=== PATIENT | female | born 1990 | race African-American/Black ===

== ENCOUNTER 2024-12-23 21:07 | Emergency (ER) | payer OTHER ==
[2024-12-23] MEDS ORDERED: ZIPRASIDONE MESYLA 20 MG/VIAL IM ONE (21:45)
[2024-12-23] MEDS ORDERED: LORazepam 2 MG/ML VIAL ONE (21:45)
[2024-12-23] MEDS ORDERED: WATER FOR INJ,STERILE 10 ML ONE (21:45)
[2024-12-23 22:20] LABS: Absolute Lymphocytes (CBC) 1.2 K/uL (0.7-4.9); Absolute Monocytes 0.5 K/uL (0.1-1.3); Absolute Neutrophil 7.9 K/uL (1.8-8.0); Basophils % 0.2 % (0-1.3); Eosinophils % 0.3 % (0-4.4); Hemoglobin 14.4 g/dL (12.0-15.0); Lymphocytes % 12.3 % (15.3-44.8); MCH 30.2 pg (27.0-35.0); MCHC 34.3 g/dL (32.0-36.0); MCV 88.1 fL (80-100); Neutrophils % 82.2 % (41.7-73.7); Nucleated Red Blood Cells % 0.1 % (0-0); Platelets 271 thou/uL (152-406); RBC Red Blood Cell Count 4.77 M/uL (3.86-4.86); Red Cell Distribution Width 13.7 % (12.1-15.2)
[2024-12-23 22:31] LABS: PT Prothrombin Time 13.8 SECONDS (10-13.0); PTT, Activated Partial Thromb 28.3 SECONDS (27.2-37.4); Protime INR 1.22
[2024-12-23 23:29] LABS: ALT/SGPT 27 U/L (13-56); AST/SGOT 17 U/L (15-37); Albumin 3.7 g/dL (3.4-5.0); Albumin/Globulin Ratio 0.7 (1.1-1.8); Alkaline Phosphatase 89 U/L (45-117); Anion Gap 17.2 mEq/L (5.0-15.0); BUN Blood Urea Nitrogen 8 mg/dL (7-18); Bicarbonate 17 mEq/L (21-32); Bilirubin Total 0.7 mg/dL (0.2-1.0); Globulin 5.2 g/dL (2.3-3.5); Glomerular Filtration Rate 100 ml/min (=/>90); Glucose Level 93 mg/dL (74-106); Potassium 3.2 mEq/L (3.5-5.1); Protein, Total 8.9 g/dL (6.4-8.2); Sodium Level 140 mEq/L (136-145)
[2024-12-23 23:40] LABS: Bilirubin Direct < 0.2 mg/dL (0-0.2); Bilirubin Indirect, Calculated 0.5 mg/dL (0.2-0.8)
[2024-12-24 01:03] LABS: Specific Gravity 1.038 (1.005-1.030)
[2024-12-24 01:08] LABS: Barbiturates NEGATIVE (NEGATIVE); Benzodiazepines NEGATIVE (NEGATIVE); Cocaine NEGATIVE (NEGATIVE); METHAMPHETAM NEGATIVE (NEGATIVE); Methadone NEGATIVE (NEGATIVE); Opiates NEGATIVE (NEGATIVE); Phencyclidine NEGATIVE (NEGATIVE); THC Cannibis NEGATIVE (NEGATIVE)
--- NOTE | 2024-12-24 03:52 | EDPHYS ---
Physician Documentation [facility] Name: Nguyen Rangel Age: 34 yrs Sex: Female : 1990 Arrival Date: 12/23/2024 Time: 21:07 Bed 17 Private MD: ED Physician Joshua Shi HPI: 12/23 21:12 This 34 yrs old Black Female presents to ER via Unassigned with complaints of psychosis sp4 . 12/24 03:43 34-year-old female with history of schizophrenia presents with medication sp4 noncompliance. Patient and her family currently resides in the [facility]. . 03:43 Patient presents to the emergency room with police written TURNER. . sp4 Historical: - Allergies: 00:14 No Known Allergies; km10 - PMHx: 00:14 Schizophrenia; Bipolar disorder; Hypertensive disorder; km10 - Immunization history:: unable to obtain, pt disoriented. - Infectious Disease History:: Denies. - Social history:: Smoking status: unknown. - Family history:: not pertinent. 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 Dressed in underwear and small sports shirt only. Refuses hospital gown. Refused medical bracelet, refused any medical treatment. Appears distracted and dejected Head/Face: Normocephalic, atraumatic. Eyes: Pupils equal round and reactive to light, extra-ocular motions intact. Lids and lashes normal. Conjunctiva and sclera are not injected. Cornea within normal limits. Periorbital areas with no swelling, redness, or edema. ENT: Nares patent. No nasal discharge, no septal abnormalities noted. Neck: Trachea midline, no thyromegaly or masses palpated, and no cervical lymphadenopathy. Supple, full range of motion without nuchal rigidity, or vertebral point tenderness. Chest/axilla: Normal chest wall appearance and motion. Nontender with no deformity. No lesions are appreciated. Cardiovascular: Regular rate and rhythm with a normal S1 and S2. No gallops, murmurs, or rubs. Normal PMI, no JVD. No pulse deficits. Respiratory: Lungs have equal breath sounds bilaterally, clear to auscultation and percussion. No rales, rhonchi or wheezes noted. No increased work of breathing, no retractions or nasal flaring. Abdomen/GI: Soft, with normal bowel sounds. No distension or tympany. No guarding or rebound. No evidence of tenderness throughout. Back: No spinal tenderness. No costovertebral tenderness. Skin: Warm, dry with normal turgor. Normal color with no rashes, no lesions, and no evidence of cellulitis. MS/ Extremity: Pulses equal, no cyanosis. Neurovascular intact. 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 Well-healed stumps Neuro: Awake and alert, refuses to comply with exam and treatment. Uncooperative. Grossly no neurologic deficits that are acute. Psych: Awake, alert, with orientation to person, patient is uncooperative and police at the provide help to hold patient down. 03:48 ECG was reviewed by the Attending Physician. EKG at 0058 normal sinus rhythm rate 70 sp4 left axis deviation. Right bundle branch block Vital Signs: 12/23 22:19 BP 136 / 83; Pulse 109; Resp 18; Temp 98.6(A); Pulse Ox 100% on R/A; km10 12/24 01:00 Pulse 76; Resp 16; Pulse Ox 98% on R/A; km10 07:24 BP 148 / 87; Pulse 92; Resp 18 S; Pulse Ox 94% on R/A; kc6 08:22 BP 154 / 91; Pulse 96; Resp 17 S; Pulse Ox 96% on R/A; Pain 0/10; kc6 09:59 BP 145 / 86; Pulse 99; Resp 18 S; Pulse Ox 96% on R/A; kc6 10:42 BP 148 / 89; Pulse 98; Resp 18 S; Pulse Ox 95% on R/A; kc6 17:07 BP 130 / 88; Pulse 100; Resp 18 S; Temp 99(O); Pulse Ox 100% on R/A; kc6 08:22 Pain Scale: Adult kc6 [place] Coma Score: 03:43 Eye Response: spontaneous(4). Motor Response: localizes pain(5). Verbal Response: sp4 confused(4). Total: 13. MDM: 12/23 21:12 Medical Screening Exam initiated sp4 12/24 03:47 Differential diagnosis: drug withdrawal. acute psychotic break, depression, psychosis 4 secondary to non-compliance. Data reviewed: vital signs, nurses notes, lab test result(s), EKG. Consideration of Admission/Observation Escalation of care including admission/observation considered. ED course: EKG at 0058. 03:51 Management of patient was discussed with the following: Cloud Solutions Architect: Attending [facility] psychiatrist. 04:52 ED course: X-ray was ordered to rule out vaginal foreign body. [facility] 12/23 21:12 Order name: Acetaminophen; Complete Time: 23:50 [facility] 12/23 21:12 Order name: Basic Metabolic Panel; Complete Time: 23:50 [facility] 12/23 21:12 Order name: CBC with Diff; Complete Time: :50 [facility] 12/23 21:12 Order name: ETOH Level; Complete Time: :50 [facility] 12/23 21:12 Order name: Hepatic Function; Complete Time: :50 [facility] 12/23 21:12 Order name: PT-INR; Complete Time: :50 [facility] 12/23 21:12 Order name: Test, Urine; Complete Time: 03:50 [facility] 12/23 21:12 Order name: Ptt, Activated; Complete Time: 23:50 [facility] 12/23 21:12 Order name: Salicylate; Complete Time: 23:50 [facility] 12/23 21:12 Order name: Urine Drug Screen; Complete Time: 03:50 [facility] 12/24 03:50 Order name: BMP [facility] 12/24 04:28 Order name: XRAY Pelvis [facility] 12/23 21:12 Order name: EKG - Nurse/Tech; Complete Time: 01: [facility] 12/23 21:12 Order name: IV Saline Lock; Complete Time: 22:08 [facility] 12/23 21:12 Order name: Labs collected and sent; Complete Time: 22:03 [facility] 12/23 21:12 Order name: Suicide Precautions; Complete Time: 02:46 [facility] 12/23 21:12 Order name: Suicide Screening ([place]); Complete Time: 02:46 [facility] 12/23 21:12 Order name: Cath; Complete Time: 01: [facility] EC:58 Rate is 70 beats/min. Rhythm is regular, Sinus Rhythm. Left axis deviation noted. [place] sp4 interval is normal. QRS interval is prolonged. QT interval is normal. No Q waves. No ST changes noted. Clinical impression: No evidence of ischemia. Interpreted by me. Reviewed by me. Administered Medications: 12/23 22:08 Drug: Geodon IM 40 mg IM once Route: IM; Site: left deltoid; km10 22:34 Follow up: Response: No adverse reaction km10 22:08 Drug: LORazepam IM 2 mg IM once Route: IM; Site: right deltoid; km10 22:34 Follow up: Response: No adverse reaction km10 22:33 Not Given (Patient Refused): Banana Bag - (ns 0.9% 1000 ml, folic acid ivpb 1 mg, km10 [id number] mg, multivitamin1 amp) IV at calculated rate once 12/24 06:22 Drug: Promethazine IM 50 mg IM once Route: IM; Site: left deltoid; rg5 07:34 Follow up: Response: No adverse reaction kc6 Disposition: 06:18 Chart complete. sp4 Disposition Summary: 12/24/24 03:52 Transfer Ordered Notes: Transfer Location: [facility] sp4 Reason: Higher level of care sp4 Condition: Stable sp4 Problem: new sp4 Symptoms: have improved sp4 Accepting Physician: Attending psychiatrist(12/24/24 18:59) kc6 Diagnosis - Catatonic disorder due to known physiological condition sp4 - Schizophrenia, noncompliance with psychiatric medications, uncooperative behavior sp4 - Agitation requiring sedation sp4 Forms: - Medication Reconciliation Form sp4 - SBAR form sp4 Signatures: Dispatcher [employer] EDSera Bruner RN RN kc6 Joshua Shi MD MD sp4 Fernando Arevalo RN RN rg5 Lizbeth Thomas RN RN km10 Corrections: (The following items were deleted from the chart) 12/23 21:12 21:12 ACETAMINOPHEN+C.LAB.BRZ ordered. EDMS EDMS 21:12 21:12 BASIC METABOLIC PANEL+C.LAB.BRZ ordered. EDMS EDMS 21:12 21:12 CBC+H.LAB.BRZ ordered. EDMS EDMS 21:12 21:12 ETHANOL+C.LAB.BRZ ordered. EDMS EDMS 21:12 21:12 HEPATIC FUNCTION+C.LAB.BRZ ordered. EDMS EDMS 21:12 21:12 PROTIME (+INR)+COAG.LAB.BRZ ordered. EDMS EDMS : 21:12 PTT, ACTIVATED+COAG.LAB.BRZ ordered. EDMS EDMS : 21:12 SALICYLATE+C.LAB.BRZ ordered. EDMS EDMS : 21:12 URINE DRUG SCREEN+UC.LAB.BRZ ordered. EDMS EDMS 22:35 21:12 Test, Urine+UC.LAB.BRZ ordered. EDMS EDMS 12/24 00:15 12/23 22:10 Allergies: Unable to obtain; km10 km10 12/24 18:59 03:52 Attending psychiatrist sp4 kc6
--- NOTE | 2024-12-24 03:52 | ER ---
Nurse's Notes [facility] Name: Nguyen Rangel Age: 34 yrs Sex: Female : 1990 Arrival Date: 12/23/2024 Time: 21:07 Bed 17 Private MD: Diagnosis: Catatonic disorder due to known physiological condition;Schizophrenia, noncompliance with psychiatric medications, uncooperative behavior;Agitation requiring sedation Presentation: 12/23 21:07 Chief complaint: [place] PD- pt is not responding to question, her mom called rg5 initially the EMS but she was not cooperative \\T\\ refusing to go with them. 21:07 Coronavirus screen: At this time, unable to obtain information related to travel rg5 outside the [place] Ebola Screen: No symptoms or risks identified at this time. Initial Sepsis Screen: Does the patient meet any 2 criteria? No. Patient's initial sepsis screen is negative. Does the patient have a suspected source of infection? No. Patient's initial sepsis screen is negative. Risk Assessment: Do you want to hurt yourself or someone else? Patient reports no desire to harm self or others. Onset of symptoms was December 23, 2024. 21:07 Method Of Arrival: Law Enforcement: [place] PD rg5 21:07 Acuity: REINIER 3 rg5 Triage Assessment: 21:07 General: Appears in no apparent distress. Behavior is quiet, uncooperative. Pain: rg5 Denies pain. EENT: No deficits noted. Neuro: Level of Consciousness is awake, alert. Cardiovascular: Patient's skin is warm and dry. Respiratory: Airway is patent Trachea midline Respiratory effort is even, unlabored, Respiratory pattern is regular, symmetrical. GI: Abdomen is round obese. Historical: - Allergies: 12/24 00:14 No Known Allergies; km10 - PMHx: 00:14 Schizophrenia; Bipolar disorder; Hypertensive disorder; km10 - Immunization history:: unable to obtain, pt disoriented. - Infectious Disease History:: Denies. - Social history:: Smoking status: unknown. - Family history:: not pertinent. Screenin/24 22:08 Abuse screen: unable to obtain, pt disoriented. Nutritional screening: No deficits km10 noted. Tuberculosis screening: No symptoms or risk factors identified. 12/24 07:00 [facility] ED Fall Risk Assessment (Adult) History of falling in the last 3 months, kc6 including since admission No falls in past 3 months (0 pts) Confusion or Disorientation No (0 pts) Intoxicated or Sedated No (0 pts) Impaired Gait Yes (1 pt) Mobility Assist Device Used Yes (1 pt) Altered Elimination No (0 pt) Score/Fall Risk Level 0 - 2 = Low Risk Oriented to surroundings. Assessment: 12/23 22:09 General: Appears in no apparent distress. Behavior is flat, inappropriate for age, km10 uncooperative. Neuro: Level of Consciousness is awake, Oriented to person. Respiratory: Respiratory effort is even, unlabored. 23:04 Reassessment: Patient appears in no apparent distress at this time. pt refuses VS. 10 23:05 Respiratory: Respiratory effort is even, unlabored. 10 12/24 00:15 Musculoskeletal: Amputation of right leg BKA, left leg AKA. km10 01:00 Reassessment: Patient appears in no apparent distress at this time. Patient states km10 symptoms have improved. pt is sleeping at this time, able to obtain VS and place her on cardiac monitor technician. . 01:00 Respiratory: Respiratory effort is even, unlabored. 10 02:43 Reassessment: [phone] (mom). rg5 07:00 Reassessment: pt with eyes closed, respirations even and unlabored. easy to arouse. kc6 08:21 Reassessment: Patient appears in no apparent distress at this time. Patient and/or kc6 family updated on plan of care and expected duration. Pain level reassessed. 09:13 Reassessment: spoke with patients mother regarding patients condition and POC. mother kc6 verbalizes understanding. 09:58 Reassessment: Patient appears in no apparent distress at this time. Patient and/or kc6 family updated on plan of care and expected duration. Pain level reassessed. 10:40 Reassessment: nurse to nurse report given to [facility]. patient declined at [facility] this time due to "medical acuity". 12:18 Reassessment: pt is awake, oriented x4 with intermittent drowsiness. pt denies SI or HI kc6 at this time. 13:50 Reassessment: Patient appears in no apparent distress at this time. No changes from [facility] previously documented assessment. Patient and/or family updated on plan of care and expected duration. Pain level reassessed. Patient is alert, oriented x 3, equal unlabored respirations, skin warm/dry/pink. 14:50 Reassessment: Patient appears in no apparent distress at this time. No changes from kc6 previously documented assessment. Patient and/or family updated on plan of care and expected duration. Pain level reassessed. Patient is alert, oriented x 3, equal unlabored respirations, skin warm/dry/pink. 15:30 Reassessment: spoke with patients mother regarding patients condition and status of kc6 transfer. mother verbalizes understanding. 15:36 Reassessment: spoke with NIKI Torres from [facility] [place]. patient declined at this time kc6 due to, "not enough clinical data." NIKI Torres states, "if she is not having any auditory or visual hallucinations or has SI/HI then this is something that can be managed outpatient and unfortunately our doctor doesn't have enough clinical data.". 15:41 Reassessment: pt with eyes closed, respirations even and unlabored, easy to arouse. kc6 16:29 Reassessment: spoke with NIKI Her at [facility]. requesting PMH regarding BKA \\T\\ kc6 AKA as well as home meds. attempted to call mom x2 to obtain PMH. no answer at this time. 16:33 Reassessment: spoke with NIKI Ochoa at [facility]. states she will speak with her kc6 eligibility manager and call us back. 16:47 Reassessment: spoke with NIKI Ochoa from [facility]. she states patient does not kc6 meet inpatient criteria and requesting she f/u outpatient. 16:50 Reassessment: Patient appears in no apparent distress at this time. No changes from kc6 previously documented assessment. Patient and/or family updated on plan of care and expected duration. Pain level reassessed. Patient is alert, oriented x 3, equal unlabored respirations, skin warm/dry/pink. 17:00 Reassessment: pt denies SI or HI or any auditory or visual hallucinations. pt refusing kc6 meal tray provided at this time. pt offered something else but still refuses. 17:08 Reassessment: spoke with NIKI Her at [facility] regarding PMH. states she will kc6 put in for doc to doc and acceptance and call back in 10min. 17:15 Reassessment: pt awake in bed singing praise and adventism music and praying. [facility] 17:49 Reassessment: Patient appears in no apparent distress at this time. No changes from [facility] previously documented assessment. Patient and/or family updated on plan of care and expected duration. Pain level reassessed. Patient is alert, oriented x 3, equal unlabored respirations, skin warm/dry/pink. 18:57 Reassessment: Patient appears in no apparent distress at this time. No changes from [facility] previously documented assessment. Patient and/or family updated on plan of care and expected duration. Pain level reassessed. Patient is alert, oriented x 3, equal unlabored respirations, skin warm/dry/pink. 19:00 Reassessment: mother informed that patient is being transferred to [place] [address] and provided contact information. mother verbalizes understanding. Psych: 12/23 22:11 [place] Suicide Severity Screening: unable to obtain, pt uncooperative with assesment km10 questions. Subjective: Delusions are denominational. Objective: Patient is uncooperative, defensive, Speech is rambling, Affect is flat, inappropriate. Pt denies substance abuse. Commitment: Patient will be an involuntary commitment. 12/24 07:00 [place] Suicide Severity Screening: In the past month, have you wished you were kc or wished you could go to sleep and not wake up? Patient responds "No." "In the past month, have you actually had any thoughts of killing yourself?" Patient responds "no." "In your lifetime, have you ever done anything, started to do anything, or prepared to do anything to end your life?" Patient responds "no.". Interventions: Patient placed in hospital gown. Searched person for dangerous items. Urine collected and sent for urine drug test. Safety Checks: Personal items have not been removed. Door is closed to patient's room. No visitors are present at this time. Vital Signs: 12/23 22:19 BP 136 / 83; Pulse 109; Resp 18; Temp 98.6(A); Pulse Ox 100% on R/A; km10 12/24 01:00 Pulse 76; Resp 16; Pulse Ox 98% on R/A; km10 07:24 BP 148 / 87; Pulse 92; Resp 18 S; Pulse Ox 94% on R/A; kc6 08:22 BP 154 / 91; Pulse 96; Resp 17 S; Pulse Ox 96% on R/A; Pain 0/10; kc6 09:59 BP 145 / 86; Pulse 99; Resp 18 S; Pulse Ox 96% on R/A; kc6 10:42 BP 148 / 89; Pulse 98; Resp 18 S; Pulse Ox 95% on R/A; kc6 17:07 BP 130 / 88; Pulse 100; Resp 18 S; Temp 99(O); Pulse Ox 100% on R/A; kc6 08:22 Pain Scale: Adult kc6 [place] Coma Score: 03:43 Eye Response: spontaneous(4). Motor Response: localizes pain(5). Verbal Response: sp4 confused(4). Total: 13. ED Course: 12/23 21:11 Patient arrived in ED. sb4 21:11 Joshua Shi MD is Attending Physician. sp4 21:52 Triage completed. rg5 22:01 Inserted 23 G right AC straight stick. vk 22:03 Initial lab(s) drawn, by me, sent to lab. vk 22:03 Acetaminophen Sent. vk 22:03 Basic Metabolic Panel Sent. vk 22:03 CBC with Diff Sent. vk 22:03 ETOH Level Sent. vk 22:03 Hepatic Function Sent. vk 22:03 PT-INR Sent. vk 22:03 Ptt, Activated Sent. vk 22:03 Salicylate Sent. vk 22:07 Lizbeth Thomas, RN is Primary Nurse. km10 22:07 Arm band placed on right wrist. km10 22:30 Patient has correct armband on for positive identification. Call light in reach. Side km10 rails up X2. 12/24 01:00 monitoring tech on. Pulse ox on. NIBP on. km10 01:00 Noise minimized. Lights dimmed. Warm blanket given. Pillow given. km10 02:37 Report given to Temo PRINCE. km10 02:41 Lizbeth Thomas, RN is Primary Nurse. km10 04:49 documents have been faxed to the following facilities for transfer: [facility], [facility], [facility]. 04:58 XRAY Pelvis In Process Unspecified. EDMS 06:33 BMP Sent. oe 07:00 Patient maintains SpO2 saturation greater than 95% on room air. kc6 07:00 Report received from NIKI Malik. kc6 07:00 Patient has correct armband on for positive identification. Bed in low position. Call kc6 light in reach. Side rails up X2. Pulse ox on. NIBP on. Door closed. Noise minimized. Lights dimmed. Moved to private room. Warm blanket given. Pillow given. Verbal reassurance given. 07:53 Diet: Patient given a regular meal tray. kc6 11:11 1050 [facility] denied transfer. sp 13:50 Diet: Patient given a regular meal tray. Patient given water. kc6 16:[address] Tamara Langley accepted pt to [facility] 1645 Admin approval Shari cuadra called [facility] for transfer talked to [place]. 16:49 Assisted to bathroom. Repositioned patient. Linen changed. kc6 18:57 No provider procedures requiring assistance completed. Patient did not have IV access kc6 during this emergency room visit. Administered Medications: 12/23 22:08 Drug: Geodon IM 40 mg IM once Route: IM; Site: left deltoid; km10 22:34 Follow up: Response: No adverse reaction km10 22:08 Drug: LORazepam IM 2 mg IM once Route: IM; Site: right deltoid; km10 22:34 Follow up: Response: No adverse reaction 10 22:33 Not Given (Patient Refused): Banana Bag - (ns 0.9% 1000 ml, folic acid ivpb 1 mg, km10 mg, multivitamin1 amp) IV at calculated rate once 12/24 06:22 Drug: Promethazine IM 50 mg IM once Route: IM; Site: left deltoid; rg5 07:34 Follow up: Response: No adverse reaction kc6 Medication: 18:59 VIS not applicable for this client. kc6 Outcome: 03:52 ER care complete, transfer ordered by sp4 18:57 Transferred by [facility]. Transfer form completed. kc6 18:57 Condition: good 18:57 Instructed on the need for transfer, 18:59 Patient left the ED. kc6 Signatures: Dispatcher [employer] EDMS Patricia Ortega Orlando oe Campbell, Kaitlyn RN RN kc6 Rach Julio PA-C PAJoshua Streeter MD MD sp4 Lucy Sellers Fernando Arevalo RN RN rg5 Lizbeth Thomas RN RN km10 Corrections: (The following items were deleted from the chart) 12/23 22:35 22:03 Test, Urine+UC.LAB.BRZ drawn and sent. guru EDMS 12/24 00:15 12/23 22:10 Allergies: Unable to obtain; anastacia km10 12/24 03:32 12/23 21:07 GI: Abdomen is round obese, rg5 rg5 12/24 15:43 09:13 Reassessment: spoke with patient mother regarding patients condition and POC. kc6 mother verbalizes understanding kc6
--- NOTE | 2024-12-24 06:01 | RAD REPORT ---
XR PELVIS 1-2 VIEWS INDICATION: Examine for foreign body object COMPARISON: Abdominal radiograph 01/14/2024 TECHNIQUE: 1 view of the pelvis FINDINGS: BONES: No acute fracture or malalignment. No suspicious sclerotic or lytic lesion. SOFT TISSUE: Unremarkable. OTHER: No radiopaque foreign body. IMPRESSION: No acute bony abnormality. No radiopaque foreign body. Electronically signed by: Anny Khan MD 12/24/2024 05:30 AM CDT RP Due to temporary technical issues with the PACS/Desk[employer] reporting system, reports are being charles d by the in-house radiologist without review as a courtesy to ensure prompt reporting the interpreting radiologist is fully responsible for the content of the report. Transcribed Date/Time: 12/24/2024 6:01 AM
[2024-12-24] MEDS ORDERED: PROMETHAZINE INJ 25 MG/ML AMP ONE (06:20)
[2024-12-24 06:54] LABS: Anion Gap 18.7 mEq/L (5.0-15.0); Potassium 3.7 mEq/L (3.5-5.1)
[2024-12-24 19:16] VITALS: BP 130/88; TEMP 99; O2SAT 100
--- NOTE | 2024-12-26 12:24 | EKG ---
Test Date: 2024-12-24 Test Time: 00:58:14 Community Support Worker: QUIRINO MEASUREMENT RESULTS: Intervals: Rate: 70 WI: 194 QRSD: 112 QT: 482 QTc: 520 [place]: P: 63 WI: 194 QRS: -35 T: 169 INTERPRETIVE STATEMENTS: Normal sinus rhythm Left axis deviation Incomplete right bundle branch block T wave abnormality, consider inferior ischemia T wave abnormality, consider anterolateral ischemia Prolonged QT Abnormal ECG No previous ECG available for comparison Electronically Signed On 12-26-24 12:20:01 CDT by Cali Lion
== END 2024-12-24 18:59 ==
LOC: ER 21:07
DX: F20.9 Schizophrenia, unspecified (principal); F06.1 Catatonic disorder due to known physiological condition; Z91.148 Patient's other noncompliance with medication regimen for other reason
CPT/HCPCS: 93005; 85025; 80048 ×2; 36415; 81025; 85610; 80076; 85730; 80307; 72170; 96372; 99285; 80143; 80179; 82077; J2550; J3486

== ENCOUNTER 2024-12-24 21:55 | Emergency (ER) | payer OTHER ==
--- OUTSIDE RECORDS SUMMARY | 2024-12-24 21:58 | XMS REPORT | Continuity of Care Document ---
Author Name Unknown Address [address] [place] [address] [facility] [address] [place] [address] Care Team Providers Care Last Pattern Grader Name Role Phone Unavailable Unavailable Unavailable Encounters Start Date/Time End Date/Time Encounter Type Admission Type Attending Clinicians Care Facility Care Department Encounter ID Source 2024-10-06 12:02:45 2024-10-06 12:02:45 Outpatient [facility] SFA [id number] Robert Meza 2024-10-05 13:25:07 2024-10-05 13:25:07 Outpatient [facility] SFA [id number] Robert Meza 2024-07-03 13:22:37 2024-07-03 13:22:37 Outpatient SFA SFA [id number] Robert Meza 2024-06-23 10:30:31 2024-06-23 10:30:31 Outpatient SFA SFA [id number] Robert Meza 2024-06-09 10:44:18 2024-06-09 10:44:18 Outpatient SFA SFA [id number] Robert Meza 2024-05-22 16:45:06 2024-05-22 16:45:06 Outpatient [facility]FA SFA [id number] Robert Meza 2024-05-18 11:14:22 2024-05-18 11:14:22 Outpatient SFA SFA [id number] Robert Meza
[2024-12-24] MEDS ORDERED: LORazepam 2 MG/ML VIAL ONE (22:15)
[2024-12-24] MEDS ORDERED: ZIPRASIDONE MESYLA 20 MG/VIAL IM ONE (22:15)
--- NOTE | 2024-12-25 07:41 | EDPHYS ---
Physician Documentation [facility] Name: Nguyen Rangel Age: 34 yrs Sex: Female : 1990 Arrival Date: 12/24/2024 Time: 21:55 Bed 18 Private MD: ED Physician Jamshid Kay HPI: 12/24 21:59 This 34 yrs old Black Female presents to ER via Unassigned with complaints of Altered sp4 Mental Status. 12/25 06:55 34-year-old female presents with EMS. Patient has history of schizophrenia she was sp4 transferred to [facility] with EMS but [facility] has refused to accept patient and send her back with EMS. [facility] demanded for patient to have warrant and to come in with police escort. On arrival back here to the ER patient is uncooperative and agitated and patient had to be given Geodon and Ativan.. 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 - Infectious Disease History:: Denies. - Family history:: not pertinent. - Social history:: Smoking status: . 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 Uncooperative behavior on arrival Head/Face: Normocephalic, atraumatic. Eyes: Pupils equal round and reactive to light, extra-ocular motions intact. Lids and lashes normal. Conjunctiva and sclera are not injected. Cornea within normal limits. Periorbital areas with no swelling, redness, or edema. ENT: Nares patent. No nasal discharge, no septal abnormalities noted. Tympanic membranes are normal and external auditory canals are clear. Oropharynx with no redness, swelling, or masses, exudates, or evidence of obstruction, uvula midline. Mucous membranes moist. Neck: Trachea midline, no thyromegaly or masses palpated, and no cervical lymphadenopathy. Supple, full range of motion without nuchal rigidity, or vertebral point tenderness. Chest/axilla: Normal chest wall appearance and motion. Nontender with no deformity. No lesions are appreciated. Cardiovascular: Regular rate and rhythm with a normal S1 and S2. No gallops, murmurs, or rubs. Normal PMI, no JVD. No pulse deficits. Respiratory: Lungs have equal breath sounds bilaterally, clear to auscultation and percussion. No rales, rhonchi or wheezes noted. No increased work of breathing, no retractions or nasal flaring. Abdomen/GI: Soft, with normal bowel sounds. No distension or tympany. No guarding or rebound. No evidence of tenderness throughout. Back: No spinal tenderness. No costovertebral tenderness. Skin: Warm, dry with normal turgor. Normal color with no rashes, no lesions, and no evidence of cellulitis. MS/ Extremity: Pulses equal, no cyanosis. Neurovascular intact. Full, normal range of motion. Neuro: Awake and alert, grossly no new neurologic deficits Psych: Awake, alert, with orientation to person, uncooperative and agitated Vital Signs: 06:58 BP 122 / 82; Pulse 112; Resp 18; Pulse Ox 95% on R/A; Pain 0/10; rg5 07:48 BP 128 / 89; Pulse 126; Resp 18; Pulse Ox 100% on R/A; bc6 11:58 BP 116 / 77; Pulse 122; Resp 16; Pulse Ox 100% ; kn 06:58 Pain Scale: Adult rg5 Domonique Coma Score: 06:55 Eye Response: spontaneous(4). Motor Response: localizes pain(5). Verbal Response: sp4 confused(4). Total: 13. MDM: 12/24 22:00 Medical Screening Exam initiated sp4 12/25 06:58 Differential Diagnosis: overdose, seizure, volume depletion. Data reviewed: vital sp4 signs, nurses notes, old medical records. Consideration of Admission/Observation Escalation of care including admission/observation considered. ED course: Patient at this time as was communicated to me he is waiting for warrant . 06:59 Transition of care: After a detail discussion of the patient's case, care is sp4 transferred to Jamshid Kay DO. Administered Medications: 12/24 22:23 Drug: Geodon IM 40 mg IM once Route: IM; Site: left deltoid; rg5 23:00 Follow up: Response: No adverse reaction rg5 22:23 Drug: LORazepam IM 2 mg IM once Route: IM; Site: right deltoid; rg5 23:00 Follow up: Response: No adverse reaction rg5 Disposition Summary: 12/25/24 07:41 Transfer Ordered Notes: Transfer Location: Psych Facility ms3 Reason: Higher level of care ms3 Condition: Stable ms3 Problem: new ms3 Symptoms: are unchanged ms3 Accepting Physician: (12/25/24 12:22) jl7 Diagnosis - Schizophrenia, unspecified ms3 - Patient's other noncompliance with medication regimen ms3 - Unspecified psychosis not due to a substance or known physiological condition ms3 Forms: - Medication Reconciliation Form ms3 - SBAR form ms3 Signatures: Tom Matt RN RN jl7 Jamshid Kay DO DO ms3 Joshua Shi MD MD sp4 HENNY CANDELARIA RN RN kn Fernando Arevalo RN RN rg5 Corrections: (The following items were deleted from the chart) 12/25 12:01 12:01 PMHx: Schizophrenia; [facility] 12: 12:01 PMHx: Bipolar disorder; [facility] 12: 12:01 PMHx: Hypertensive disorder; [facility] 12: 07:41 ms3 jl7
--- NOTE | 2024-12-25 07:41 | ER ---
Nurse's Notes [facility] Name: Nguyen Rangel Age: 34 yrs Sex: Female : 1990 Arrival Date: 12/24/2024 Time: 21:55 Bed 18 Private MD: Diagnosis: Schizophrenia, unspecified;Patient's other noncompliance with medication regimen;Unspecified psychosis not due to a substance or known physiological condition Presentation: 12/24 21:55 Chief complaint: EMS states: patient was about to be transfer to [facility] and rg5 she refuses to go and uncooperative with the staff. 21:55 Coronavirus screen: Client denies travel out of the [place] in the last 14 days. Ebola rg5 Screen: Patient negative for fever greater than or equal to 101.5 degrees Fahrenheit, and additional compatible Ebola Virus Disease symptoms Patient denies exposure to infectious person. Patient denies travel to an Ebola-affected area in the 21 days before illness onset. Initial Sepsis Screen: Does the patient meet any 2 criteria? No. Patient's initial sepsis screen is negative. Does the patient have a suspected source of infection? No. Patient's initial sepsis screen is negative. Risk Assessment: Do you want to hurt yourself or someone else? Patient reports no desire to harm self or others. Onset of symptoms was December 24, 2024. 21:55 Method Of Arrival: EMS 5 21:55 Acuity: REINIER 3 rg5 Triage Assessment: 21:55 General: Appears in no apparent distress. Behavior is flat, uncooperative. rg5 21:55 Pain: Denies pain. EENT: No deficits noted. Neuro:. Cardiovascular: Patient's skin is rg5 warm and dry. Respiratory: Airway is patent Trachea midline Respiratory effort is even, unlabored, Respiratory pattern is regular, symmetrical, Breath sounds are clear. GI: Abdomen is round. : No signs and/or symptoms were reported regarding the genitourinary system. Derm: Skin is intact, Skin is dry, Skin is normal, Skin temperature is warm. 21:55 Musculoskeletal: Amputation of right leg BKA and left leg AKA. 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 - Infectious Disease History:: Denies. - Family history:: not pertinent. - Social history:: Smoking status: . Screenin:55 [facility] ED Fall Risk Assessment (Adult) History of falling in the last 3 months, rg5 including since admission No falls in past 3 months (0 pts) Confusion or Disorientation Yes (5 pts) Intoxicated or Sedated No (0 pts) Impaired Gait Yes (1 pt) Mobility Assist Device Used Yes (1 pt) Altered Elimination No (0 pt) Score/Fall Risk Level 3 or more points = High Risk Oriented to surroundings, Maintained a safe environment. Abuse screen: Denies threats or abuse. Nutritional screening: No deficits noted. Tuberculosis screening: No symptoms or risk factors identified. Assessment: 22:00 Reassessment: No changes from previously documented assessment. Patient and/or family rg5 updated on plan of care and expected duration. Pain level reassessed. General: Appears in no apparent distress. Behavior is calm, quiet, sleeping. Respiratory: Airway is patent Trachea midline. 22:00 Reassessment: refuse to have her vitals check. rg5 23:15 Reassessment: No changes from previously documented assessment. Patient and/or family rg5 updated on plan of care and expected duration. Pain level reassessed. General: Appears in no apparent distress. Behavior is calm, quiet, sleeping. Respiratory: Airway is patent Trachea midline. 12/25 00:25 Reassessment: No changes from previously documented assessment. Patient and/or family rg5 updated on plan of care and expected duration. Pain level reassessed. 00:25 General: Appears in no apparent distress. Behavior is calm, quiet, sleeping. rg5 01:30 Reassessment: No changes from previously documented assessment. Patient and/or family rg5 updated on plan of care and expected duration. Pain level reassessed. General: Appears in no apparent distress. Behavior is calm, quiet, sleeping. 02:34 Reassessment: No changes from previously documented assessment. Patient and/or family rg5 updated on plan of care and expected duration. Pain level reassessed. General: Appears in no apparent distress. Behavior is calm, quiet, sleeping. 03:30 Reassessment: No changes from previously documented assessment. Patient and/or family rg5 updated on plan of care and expected duration. Pain level reassessed. General: Appears in no apparent distress. Behavior is calm, quiet, aleeping. Respiratory: Airway is patent Trachea midline Breath sounds are clear. 04:17 Reassessment: No changes from previously documented assessment. Patient and/or family rg5 updated on plan of care and expected duration. Pain level reassessed. General: Appears in no apparent distress. Behavior is calm, quiet, sleeping. Respiratory: Airway is patent Trachea midline Breath sounds are clear. 05:11 Reassessment: No changes from previously documented assessment. Patient and/or family rg5 updated on plan of care and expected duration. Pain level reassessed. General: Appears in no apparent distress. Behavior is calm, quiet, sleeping. Respiratory: Airway is patent Trachea midline. 07:14 Reassessment: pt care/report received from NIKI King. pt is in bed, AAOx4, singing, kn cooperative at this time, will continue to monitor pt. Sitter present. 08:09 Reassessment: Pt denies SI/HI, calm and cooperative at this time, does not require a jl7 sitter at this time. 09:24 Reassessment: pt resting quietly in bed, in no acute distress, will continue to monitor kn pt. 11:46 Reassessment: pt resting quietly in bed, waiting for transport to psych facility. pt kn refused lunch tray. 11:52 Reassessment: pt care/report/paperwork given to [facility], pt spoke with mother jozef prior to leaving. pt is AAOx3, in no acute distress, pt stable for transport. Psych: 12/24 21:55 [place] Suicide Severity Screening: In the past month, have you wished you were rg5 or wished you could go to sleep and not wake up? Patient responds "No." "In the past month, have you actually had any thoughts of killing yourself?" Patient responds "no." "In your lifetime, have you ever done anything, started to do anything, or prepared to do anything to end your life?" Patient responds "no.". 21:55 Subjective: Patient's mood is irritable, Delusions are mandaen. Objective: Patient is rg5 uncooperative, irritable. Interventions: Removed personal items and placed in bag. Searched person for dangerous items. Safety Checks: Personal items have been removed. Door is open. No visitors are present at this time. Pt denies substance abuse. 12/25 11:59 Commitment:. kn Vital Signs: 06:58 BP 122 / 82; Pulse 112; Resp 18; Pulse Ox 95% on R/A; Pain 0/10; rg5 07:48 BP 128 / 89; Pulse 126; Resp 18; Pulse Ox 100% on R/A; bc6 11:58 BP 116 / 77; Pulse 122; Resp 16; Pulse Ox 100% ; kn 06:58 Pain Scale: Adult rg5 Domonique Coma Score: 06:55 Eye Response: spontaneous(4). Motor Response: localizes pain(5). Verbal Response: sp4 confused(4). Total: 13. ED Course: 12/24 21:55 Patient has correct armband on for positive identification. Bed in low position. Side rg5 rails up X2. 21:55 No provider procedures requiring assistance completed. rg5 21:56 Patient arrived in ED. jj6 21:57 Fernando Arevalo, NIKI is Primary Nurse. rg5 21:59 Joshua Shi MD is Attending Physician. sp4 22:00 Sitter at bedside. lp2 23:25 Triage completed. rg5 12/25 07:00 Arm band placed on right wrist. jl7 07:40 Attending Physician role handed off by Joshua Shi MD ms3 07:40 Jamshid Kay DO is Attending Physician. ms3 08:46 [phone] called [facility] talked to Chun- will accept pt with Transfer warrant. sp 0911 Admin approval Shari Call 0911 Dr. Tosin Varela accepted pt. report # [phone] [id number] scanned transfer warrant to Judge Julio 1004 Judge Julio emailed signed/notarized Transfer back. faxed to [facility]. 08:56 refused breakfast. bc6 10:44 called [facility] to follow up on pt's wheelchair. Eleazar with [facility] stated they sp left wheelchair at [facility]. 11:50 refused lunch. bc6 12:00 Provided Education on: admit to psych facility. kn 12:00 Patient did not have IV access during this emergency room visit. kn Administered Medications: 12/24 22:23 Drug: Geodon IM 40 mg IM once Route: IM; Site: left deltoid; rg5 23:00 Follow up: Response: No adverse reaction rg5 22:23 Drug: LORazepam IM 2 mg IM once Route: IM; Site: right deltoid; rg5 23:00 Follow up: Response: No adverse reaction rg5 Medication: 21:55 VIS not applicable for this client. rg5 Outcome: 12/25 07:41 ER care complete, transfer ordered by . ms3 12:00 Discharged to [facility] 12:00 Condition: stable 12:00 Discharge instructions given to EMS, 12:22 Patient left the ED. jl7 Signatures: Patricia Ortega Jahala RN RN jl7 Jamshid Kay DO DO ms3 Shahnaz Breen jj6 Leslie Wang Sergey, MD MD sp4 HENNY CANDELARIA RN RN kn Gallardo, Rommel, NIKI PRINCE rg5 Kelin Allen lp2 Corrections: (The following items were deleted from the chart) 00:45 12/24 22:48 Fernando Arevalo RN is Primary Nurse. rg5 5 12/25 10:44 10:38 [phone] called [facility] talked to Chun will accept pt with Transfer sp warrant. 0911 Admin approval Shari Call 0911 Dr. Tosin Varela accepted pt. report # [phone] 11:48 11:46 Reassessment: pt resting quietly in bed, waiting for transport to psych facility. [facility] 12: 12:01 PMHx: Schizophrenia; [facility] 12: 12:01 PMHx: Bipolar disorder; [facility] 12: 12:01 PMHx: Hypertensive disorder; [facility]
[2024-12-25 12:28] VITALS: O2SAT 100
[2024-12-25 12:30] VITALS: BP 116/77
== END 2024-12-25 12:22 ==
LOC: ER 21:55
DX: F20.9 Schizophrenia, unspecified (principal); F29 Unspecified psychosis not due to a substance or known physiological condition; Z91.148 Patient's other noncompliance with medication regimen for other reason
CPT/HCPCS: 96372; 99285; J3486